=== PATIENT | female | born 1970 | race African-American/Black ===

== ENCOUNTER 2016-09-15 08:26 | Emergency (ER) | payer OTHER ==
[~2016-09-15] VITALS: Ht 177.8 cm; Wt 94.8 kg
[2016-09-15 08:36] VITALS: BP 157/94
--- NOTE | 2016-09-15 08:54 | RAD ---
Right shoulder, 3 views, 09/15/2016: History: Pain after lifting No fracture or dislocation is identified. The periarticular soft tissues are unremarkable. IMPRESSION: No acute right shoulder abnormality is detected.
[2016-09-15] MEDS ORDERED: CYCL10TA2 PO (09:38)
[2016-09-15] MEDS ORDERED: NAPR500T8 PO (09:38)
--- NOTE | 2016-09-15 09:38 | PHYS DOC ---
Past Medical History Past Medical History: CAD, Hyperthyroid, [place] Past Surgical History: Cholecystectomy, Hysterectomy, Other Additional Past Surgical Histo: 4 stents in heart, Alcohol Use: None Drug Use: None Adult General Chief Complaint Chief Complaint: SHOULDER INJURY HPI HPI Patient is a 46 year old female with no significant medical history who presents with mild right shoulder pain that began on last week. 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 Review of Systems Review of Systems Constitutional: Denies fever or chills [] Eyes: Denies change in visual acuity, redness, or eye pain [] HENT: Denies nasal congestion or sore throat [] : Denies dysuria or hematuria [] Musculoskeletal: Right shoulder pain Neurologic: Denies headache, focal weakness or sensory changes [] Endocrine: Denies polyuria or polydipsia [] Allergies Allergies Allergies Coded Allergies Type Severity Reaction Last Updated Verified No Known Drug Allergies 02/22/15 No Physical Exam Physical Exam Constitutional: Well developed, well nourished, no acute distress, non-toxic appearance. [] HENT: Normocephalic, atraumatic, bilateral external ears normal, oropharynx moist, no oral exudates, nose normal. [] Skin: Warm, dry, no erythema, no rash. [] Back: No tenderness, no CVA tenderness. [] Extremities: Right shoulder with no obvious deformity. No tenderness on palpation of the right shoulder. Some pain elicited on raising the right shoulder above 75. Slightly Limited range of motion to the right shoulder especially the abduction. Adequate abduction of the right shoulder. Adequate plantar flexion and dorsiflexion of the right forearm. Adequate radial, medial and ulnar sensation to the right forearm. +2 right radial pulse. Cap refill less than 2 seconds the right upper extremity. Neurologic: Alert and oriented X 3, normal motor function, normal sensory function, no focal deficits noted. [] Psychologic: Affect normal, judgement normal, mood normal. [] Current Patient Data Vital Signs Vital Signs Date Time Temp Pulse Resp B/P Pulse Ox O2 Delivery O2 Flow Rate FiO2 09/15/16 08:36 98.7 67 20 97 Room Air 98.7 EKG EKG [] Radiology/Procedures Radiology/Procedures [] Course & Med Decision Making Course & Med Decision Making Pertinent Labs and Imaging studies reviewed. 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 Right shoulder x-rays interpreted by radiologist are negative for any acute findings. Patient was discharged with naproxen and Flexeril. Range of motion recommended to the right shoulder. Ice recommended to the right shoulder. Elevation encouraged on the right upper extremity. Follow- up with orthopedic doctor in a week if pain continues. Dragon Disclaimer Dragon Disclaimer This electronic medical record was generated, in whole or in part, using a voice recognition dictation system. Departure Departure Impression: Primary Impression: Right shoulder strain Disposition: HOME, SELF-CARE Condition: STABLE Referrals: NO PCP (PCP) JAVY VASQUEZ MD follow up with your doctor in one week or the provided doctor Patient Instructions: Shoulder Sprain Additional Instructions: You were seen for right shoulder strain. Your x-ray of the right shoulder is negative for any acute findings. Ice and elevate the extremity. Take the prescribed medicines as needed. Follow-up with the orthopedic doctor in one week. Scripts Naproxen 500 Mg Tablet.dr1 Tab PO BID #60 TAB Ref 2 Prov:YULIANA KOROMA APRN 09/15/16 Cyclobenzaprine Hcl 10 Mg Tablet1 Tab PO TID #30 TAB Prov:YULIANA KOROMA APRN 09/15/16 Problem Qualifiers Primary Impression: Right shoulder strain Encounter type: initial encounter Qualified Code: S46.911A - Strain of unspecified muscle, fascia and tendon at shoulder and upper arm level, right arm , initial encounter YULIANA KOROMA APRN September 15, 2016 09:38
== END 2016-09-15 09:54 | disposition home or self-care (01) ==
LOC: ER 08:26
DX: S46.911A Strain of unspecified muscle, fascia and tendon at shoulder and upper arm level, right arm, initial encounter (principal); I25.10 Atherosclerotic heart disease of native coronary artery without angina pectoris; E05.90 Thyrotoxicosis, unspecified without thyrotoxic crisis or storm; I25.2 Old myocardial infarction; Z95.5 Presence of coronary angioplasty implant and graft; X58.XXXA Exposure to other specified factors, initial encounter; Y93.89 Activity, other specified; Y92.89 Other specified places as the place of occurrence of the external cause; Y99.8 Other external cause status
CPT/HCPCS: 73030; 99284

== ENCOUNTER 2017-06-09 03:18 | Inpatient (IN) | payer SELFPAY, OTHER ==
[2017-06-09] MEDS: NITROGLYCERIN SUBLINGUAL 0.4 MG BOTTLE OF 25. SL (03:57)
[2017-06-09] MEDS ORDERED: HEPARIN 25,000UTS/500ML PREMIX 500 ML IV (04:03)
[2017-06-09] MEDS ORDERED: HEPARIN for IV BOLUS 10,000 UNIT/10 ML VIAL. ×2 (04:03→04:52)
[2017-06-09] MEDS: HEPARIN for IV BOLUS 10,000 UNIT/10 ML VIAL. IV ×3 (04:06→19:48)
[2017-06-09] MEDS ORDERED: MORPHINE SULFATE 2 MG/ML DISP.SYRIN. (04:07)
[2017-06-09] MEDS: MORPHINE SULFATE 2 MG/ML DISP.SYRIN. IV (04:08)
[2017-06-09] MEDS: HEPARIN 25,000UTS/500ML PREMIX 500 ML IV (04:09)
[2017-06-09] MEDS: IV NORMAL SALINE 1000ML BAG 1,000 ML IV ×4 (04:10→22:58)
[2017-06-09 04:24] LABS: ADD MAN DIFF? NO
[2017-06-09 04:33] LABS: BASO % 0 % (0-3); EOS # 0.1 x10^3/uL (0.0-0.7); EOS % 2 % (0-3); HEMATOCRIT 40.1 % (36.0-47.0); HEMOGLOBIN 12.7 g/dL (12.0-15.5); LYMPH # 2.8 x10^3/uL (1.0-4.8); LYMPH % 45 % (24-48); MEAN CORPUSCULAR HEMOGLOBIN 27 pg (25-35); MEAN CORPUSCULAR HGB CONC 32 g/dL (31-37); MEAN CORPUSCULAR VOLUME 84 fL (79-100); MONO # 0.4 x10^3/uL (0.0-1.1); MONO % 7 % (0-9); NEUT # 2.8 x10^3uL (1.8-7.7); NEUT % 45 % (31-73); PLATELET COUNT 208 x10^3/uL (140-400); RED BLOOD COUNT 4.81 x10^6/uL (3.50-5.40); RED CELL DISTRIBUTION WIDTH 14.3 % (11.5-14.5); WHITE BLOOD COUNT 6.2 x10^3/uL (4.0-11.0)
[2017-06-09] MEDS ORDERED: IODIXANOL 320 MG/ML 100 ML VIAL. ×2 (04:40→05:38)
[2017-06-09] MEDS ORDERED: fentaNYL PF VIAL 100 MCG/2 ML VIAL (04:40)
[2017-06-09] MEDS ORDERED: LIDOCAINE 1% Multi-Dose 20 ML VIAL. (04:40)
[2017-06-09] MEDS ORDERED: MIDAZOLAM HCL/PF 2 MG/2 ML VIAL. (04:40)
[2017-06-09 04:41] LABS: INR 0.9 (0.8-1.1); PROTHROMBIN TIME PATIENT 11.8 SEC (11.7-14.0)
[2017-06-09 04:42] LABS: PARTIAL THROMBOPLASTIN TIME 28 SEC (24-38)
[2017-06-09 04:47] LABS: TROPONIN BY ISTAT 0.01 ng/ml (<0.08)
[2017-06-09 04:48] LABS: LIPASE 331 U/L (73-393)
[2017-06-09 04:48] LABS: ANION GAP 11 (6-14); BLOOD UREA NITROGEN 12 mg/dL (7-20); BUN/CREATININE RATIO 15 (6-20); CALCIUM 8.7 mg/dL (8.5-10.1); CARBON DIOXIDE 28 mmol/L (21-32); CHLORIDE 104 mmol/L (98-107); CREATININE 0.8 mg/dL (0.6-1.0); GFR 93.4; GLUCOSE 135 mg/dL (70-99); POTASSIUM 4.1 mmol/L (3.5-5.1); SODIUM 143 mmol/L (136-145)
[2017-06-09] MEDS ORDERED: NITROGLYCERIN 200 MCG/2 ML SYRINGE FOR CATH/VASC LAB. (04:52)
[2017-06-09] MEDS ORDERED: VERAPAMIL 5 MG/2 ML VIAL. (04:52)
[2017-06-09 04:54] LABS: ALBUMIN 3.5 g/dL (3.4-5.0); ALBUMIN/GLOBULIN RATIO 0.9 (1.0-1.7); ALK PHOS 40 U/L (46-116); ALT (SGPT) 17 U/L (14-59); AST (SGOT) 13 U/L (15-37); TOTAL BILIRUBIN 0.1 mg/dL (0.2-1.0); TOTAL PROTEIN 7.3 g/dL (6.4-8.2)
[2017-06-09 04:55] LABS: TROPONINI 0.022 ng/mL (0.000-0.055)
[2017-06-09 05:00] LABS: NT-PRO BNP 57 pg/mL (0-124)
[2017-06-09] MEDS ORDERED: MORPHINE SULFATE 2 MG/ML DISP.SYRIN. IV (05:00)
[2017-06-09] MEDS ORDERED: ONDANSETRON PF 4 MG/2 ML VIAL. IV (05:00)
[2017-06-09] MEDS ORDERED: TIROFIBAN 5MG -0.9% NS 100 ML IV ×2 (05:34→08:30)
[2017-06-09] MEDS: ANTI-COAG MONITOR BY PHARMACY. MC ×2 (05:42→09:41)
[2017-06-09] MEDS: TIROFIBAN 5MG -0.9% NS 100 ML IV ×4 (05:50→19:34)
[2017-06-09] MEDS: LIDOCAINE 2% 20 ML VIAL. IJ (06:00)
[2017-06-09 06:18] LABS: ISTAT ACT 225 sec (92-181)
[2017-06-09] MEDS: IODIXANOL 320 MG/ML 100 ML VIAL. IART (06:22)
[2017-06-09] MEDS: VERAPAMIL 5 MG/2 ML VIAL. IART (06:24)
[2017-06-09] MEDS: HEPARIN for IV BOLUS 10,000 UNIT/10 ML VIAL. IART (06:24)
[2017-06-09] MEDS: MIDAZOLAM HCL/PF 2 MG/2 ML VIAL. IV (06:25)
[2017-06-09] MEDS: fentaNYL PF VIAL 100 MCG/2 ML VIAL IV (06:26)
[2017-06-09] MEDS: NITROGLYCERIN 200 MCG/2 ML SYRINGE FOR CATH/VASC LAB. ICAR (06:28)
[2017-06-09] MEDS: NITROGLYCERIN 200 MCG/2 ML SYRINGE FOR CATH/VASC LAB. IART (06:28)
[2017-06-09 08:45] LABS: ISTAT ACT 298 sec (92-181)
[2017-06-09 11:13] LABS: CHOLESTEROL 180 mg/dL (0-200); HDLC 45 mg/dL (40-60); LDLC 116 mg/dL (0-100); NON-HDL CHOLESTEROL 135 mg/dL (0-129); TRIGLYCERIDES 94 mg/dL (0-150); VLDLC 19 mg/dL (0-40)
[2017-06-09 11:32] LABS: THYROID STIM HORMONE (TSH) 15.815 uIU/mL (0.358-3.74)
[2017-06-09 11:40] LABS: TROPONINI 24.909 ng/mL (0.000-0.055)
[2017-06-09 11:49] LABS: UNFRACTIONATED HEPARIN TESTING 0.82 IU/mL (0.30-0.70)
[2017-06-09] MEDS: ACETAMINOPHEN 500 MG TABLET PO (13:48)
[2017-06-09] MEDS: CYCLOBENZAPRINE 10 MG TABLET. PO (13:49)
[2017-06-09 17:40] LABS: TROPONINI 23.039 ng/mL (0.000-0.055)
[2017-06-09] MEDS: ALPRAZolam 0.25 MG TABLET PO (18:34)
[2017-06-09] MEDS: HYDROcodone/APAP 5/325MG 1 TAB TABLET PO (18:34)
[2017-06-09 19:26] LABS: UNFRACTIONATED HEPARIN TESTING 0.16 IU/mL (0.30-0.70)
[2017-06-09 21:15] LABS: MRSA BY PCR Negative (Negative)
[2017-06-10] MEDS: HYDROcodone/APAP 5/325MG 1 TAB TABLET PO ×2 (00:39→20:33)
[2017-06-10] MEDS: CYCLOBENZAPRINE 10 MG TABLET. PO ×3 (00:40→20:33)
[2017-06-10 01:46] LABS: ADD MAN DIFF? NO
[2017-06-10 02:04] LABS: UNFRACTIONATED HEPARIN TESTING 0.57 IU/mL (0.30-0.70)
[2017-06-10 03:03] LABS: ANION GAP 10 (6-14); BLOOD UREA NITROGEN 8 mg/dL (7-20); CALCIUM 7.5 mg/dL (8.5-10.1); CARBON DIOXIDE 24 mmol/L (21-32); CHLORIDE 108 mmol/L (98-107); CREATININE 0.8 mg/dL (0.6-1.0); GFR 93.4; GLUCOSE 100 mg/dL (70-99); MAGNESIUM 1.7 mg/dL (1.8-2.4); POTASSIUM 3.5 mmol/L (3.5-5.1); SODIUM 142 mmol/L (136-145)
[2017-06-10 03:09] LABS: BASO % 0 % (0-3); EOS # 0.1 x10^3/uL (0.0-0.7); EOS % 1 % (0-3); HEMATOCRIT 35.7 % (36.0-47.0); HEMOGLOBIN 11.7 g/dL (12.0-15.5); LYMPH # 2.5 x10^3/uL (1.0-4.8); LYMPH % 31 % (24-48); MEAN CORPUSCULAR HEMOGLOBIN 27 pg (25-35); MEAN CORPUSCULAR HGB CONC 33 g/dL (31-37); MEAN CORPUSCULAR VOLUME 83 fL (79-100); MONO # 0.7 x10^3/uL (0.0-1.1); MONO % 9 % (0-9); NEUT # 4.9 x10^3uL (1.8-7.7); NEUT % 59 % (31-73); PLATELET COUNT 192 x10^3/uL (140-400); RED BLOOD COUNT 4.31 x10^6/uL (3.50-5.40); RED CELL DISTRIBUTION WIDTH 14.1 % (11.5-14.5); WHITE BLOOD COUNT 8.3 x10^3/uL (4.0-11.0)
[2017-06-10] MEDS: HEPARIN 25,000UTS/500ML PREMIX 500 ML IV (05:05)
[2017-06-10] MEDS: ANTI-COAG MONITOR BY PHARMACY. MC (07:36)
[2017-06-10] MEDS: IV NORMAL SALINE 1000ML BAG 1,000 ML IV ×2 (08:41→15:23)
[2017-06-10 08:50] LABS: UNFRACTIONATED HEPARIN TESTING 0.42 IU/mL (0.30-0.70)
[2017-06-10 12:50] LABS: TROPONINI 10.862 ng/mL (0.000-0.055)
[2017-06-10 14:38] LABS: UNFRACTIONATED HEPARIN TESTING 0.36 IU/mL (0.30-0.70)
[2017-06-10] MEDS: ASPIRIN ENTERIC COATED 81 MG TABLET.DR. PO (15:24)
[2017-06-10] MEDS: MAGNESIUM SULFATE 2GM 50 ML IV (16:22)
[2017-06-10] MEDS: CLOPIDOGREL BISULFATE 75 MG TABLET PO (17:57)
[2017-06-10] MEDS: ATORVASTATIN CALCIUM 40 MG TABLET. PO (20:33)
[2017-06-10] MEDS ORDERED: ATORVASTATIN CALCIUM 40 MG TABLET. PO (21:00)
[2017-06-11] MEDS: IV NORMAL SALINE 1000ML BAG 1,000 ML IV (00:54)
[2017-06-11 03:49] LABS: ADD MAN DIFF? NO
[2017-06-11 03:52] LABS: BASO # 0.1 x10^3/uL (0.0-0.2); BASO % 1 % (0-3); EOS # 0.2 x10^3/uL (0.0-0.7); EOS % 2 % (0-3); HEMATOCRIT 35.1 % (36.0-47.0); HEMOGLOBIN 11.5 g/dL (12.0-15.5); LYMPH # 2.6 x10^3/uL (1.0-4.8); LYMPH % 28 % (24-48); MEAN CORPUSCULAR HEMOGLOBIN 27 pg (25-35); MEAN CORPUSCULAR HGB CONC 33 g/dL (31-37); MEAN CORPUSCULAR VOLUME 83 fL (79-100); MONO # 0.9 x10^3/uL (0.0-1.1); MONO % 9 % (0-9); NEUT # 5.5 x10^3uL (1.8-7.7); NEUT % 59 % (31-73); PLATELET COUNT 168 x10^3/uL (140-400); RED BLOOD COUNT 4.23 x10^6/uL (3.50-5.40); RED CELL DISTRIBUTION WIDTH 14.2 % (11.5-14.5); WHITE BLOOD COUNT 9.2 x10^3/uL (4.0-11.0)
[2017-06-11 04:06] LABS: UNFRACTIONATED HEPARIN TESTING 0.26 IU/mL (0.30-0.70)
[2017-06-11 04:06] LABS: ANION GAP 8 (6-14); BLOOD UREA NITROGEN 7 mg/dL (7-20); CALCIUM 7.4 mg/dL (8.5-10.1); CARBON DIOXIDE 24 mmol/L (21-32); CHLORIDE 107 mmol/L (98-107); CREATININE 0.6 mg/dL (0.6-1.0); GFR 130.2; GLUCOSE 95 mg/dL (70-99); POTASSIUM 3.5 mmol/L (3.5-5.1); SODIUM 139 mmol/L (136-145)
[2017-06-11] MEDS: HEPARIN 25,000UTS/500ML PREMIX 500 ML IV (05:53)
[2017-06-11] MEDS: LEVOTHYROXINE 50 MCG TABLET PO (06:25)
[2017-06-11] MEDS: ANTI-COAG MONITOR BY PHARMACY. MC (07:32)
[2017-06-11] MEDS: HYDROcodone/APAP 5/325MG 1 TAB TABLET PO (08:21)
[2017-06-11] MEDS: ASPIRIN ENTERIC COATED 81 MG TABLET.DR. PO (08:21)
[2017-06-11] MEDS: CYCLOBENZAPRINE 10 MG TABLET. PO (08:21)
[2017-06-11] MEDS: CLOPIDOGREL BISULFATE 75 MG TABLET PO (08:21)
[2017-06-11] MEDS: POTASSIUM CL 20MEQ-0.45% NACL 1,000 ML IV (09:07)
[2017-06-11] MEDS ORDERED: fentaNYL PF VIAL 100 MCG/2 ML VIAL (09:44)
[2017-06-11] MEDS: fentaNYL PF VIAL 100 MCG/2 ML VIAL IV (10:08)
[2017-06-11] MEDS ORDERED: VANCOMYCIN 1GM IVPB FOR OMNI 250 ML IV (10:15)
[2017-06-11] MEDS: VANCOMYCIN 1 GM in IV DEXTROSE 5% 250 ML IV (12:51)
[2017-06-11] MEDS: ATORVASTATIN CALCIUM 40 MG TABLET. PO (20:20)
[2017-06-12] MEDS: LEVOTHYROXINE 50 MCG TABLET PO (06:20)
[2017-06-12 06:23] LABS: ADD MAN DIFF? NO
[2017-06-12 06:30] LABS: BASO % 0 % (0-3); EOS # 0.2 x10^3/uL (0.0-0.7); EOS % 3 % (0-3); HEMATOCRIT 37.4 % (36.0-47.0); HEMOGLOBIN 12.1 g/dL (12.0-15.5); LYMPH # 1.7 x10^3/uL (1.0-4.8); LYMPH % 19 % (24-48); MEAN CORPUSCULAR HEMOGLOBIN 27 pg (25-35); MEAN CORPUSCULAR HGB CONC 32 g/dL (31-37); MEAN CORPUSCULAR VOLUME 82 fL (79-100); MONO # 0.8 x10^3/uL (0.0-1.1); MONO % 8 % (0-9); NEUT # 6.3 x10^3uL (1.8-7.7); NEUT % 70 % (31-73); PLATELET COUNT 183 x10^3/uL (140-400); RED BLOOD COUNT 4.54 x10^6/uL (3.50-5.40); RED CELL DISTRIBUTION WIDTH 13.9 % (11.5-14.5)
[2017-06-12 07:17] LABS: ANION GAP 9 (6-14); BLOOD UREA NITROGEN 7 mg/dL (7-20); CALCIUM 8.3 mg/dL (8.5-10.1); CARBON DIOXIDE 25 mmol/L (21-32); CHLORIDE 105 mmol/L (98-107); CREATININE 0.7 mg/dL (0.6-1.0); GLUCOSE 98 mg/dL (70-99); POTASSIUM 3.9 mmol/L (3.5-5.1); SODIUM 139 mmol/L (136-145)
[2017-06-12] MEDS: CLOPIDOGREL BISULFATE 75 MG TABLET PO (10:49)
[2017-06-12] MEDS: METHYL SALICYLATE/MENTHOL TOPICAL OINTMENT 29GM TUBE. TP (10:49)
[2017-06-12] MEDS: ASPIRIN ENTERIC COATED 81 MG TABLET.DR. PO (10:49)
[2017-06-12] MEDS ORDERED: METOPROLOL TART IMMED RELEASE 25 MG TABLET. PO (21:00)
== END 2017-06-12 14:45 | disposition home or self-care (01) | DRG 270 ==
LOC: ER 03:18 → 1 WEST ICU 04:57
PROVIDERS: Internal Medicine
PROC: 5A02210 Assistance with Cardiac Output using Balloon Pump, Continuous (ICD-10-PCS; principal; 2017-06-09)
PROC: B2111ZZ Fluoroscopy of Multiple Coronary Arteries using Low Osmolar Contrast (ICD-10-PCS; 2017-06-09)
PROC: B2151ZZ Fluoroscopy of Left Heart using Low Osmolar Contrast (ICD-10-PCS; 2017-06-09)
PROC: 4A023N7 Measurement of Cardiac Sampling and Pressure, Left Heart, Percutaneous Approach (ICD-10-PCS; 2017-06-09)
DX: I25.119 Atherosclerotic heart disease of native coronary artery with unspecified angina pectoris (principal); I25.42 Coronary artery dissection; E83.42 Hypomagnesemia; E03.9 Hypothyroidism, unspecified; E78.5 Hyperlipidemia, unspecified; I25.2 Old myocardial infarction; M17.12 Unilateral primary osteoarthritis, left knee; Z90.710 Acquired absence of both cervix and uterus; Z98.61 Coronary angioplasty status; E05.90 Thyrotoxicosis, unspecified without thyrotoxic crisis or storm; Z90.49 Acquired absence of other specified parts of digestive tract
CPT/HCPCS: 33967; 36415; 71045; 80048; 80053; 80061; 83690; 83735; 83880; 84443; 84484; 85025; 85347; 85520; 85610; 85730; 87641; 93005; 93306; 93458; 96372; 96374; 96375; 99152; 99153; 99291; 99291-25; C1769; C1892; J1644; J2250; J2270; J3010; J3370; J3490; J7030; J7060